=== PATIENT | male | born 1980 | race Caucasian/White ===

== ENCOUNTER 2017-01-26 05:39 | Day surgery (SDC) | payer OTHER ==
[~2017-01-26] VITALS: Ht 180.3 cm; Wt 104.3 kg
--- NOTE | ~2017-01-26 | O ---
[facility] [place] [address] OPERATIVE REPORT Name: TANNER NICOLE Room #: DEP [facility]..#: [id number] Admission: 01/26/17 Attend Phys: Narinder Ron MD Discharge: 01/26/17 Date of : 84 Report #: [id number] THIS REPORT FOR: //name// CC: Narinder Tyson MD DATE OF SERVICE: 01/26/2017 PREOPERATIVE DIAGNOSIS: Right inguinal hernia. POSTOPERATIVE DIAGNOSIS: Right indirect inguinal hernia. SURGEON: Narinder Ron M.D. PROCEDURES PERFORMED: Laparoscopic properitoneal repair of right indirect inguinal hernia. ANESTHESIA: General. COMPLICATIONS: None. ESTIMATED BLOOD LOSS: 5 mL. DESCRIPTION OF PROCEDURE: With the patient under general anesthesia, the abdomen was prepped and draped in sterile fashion. Prior to this, IV antibiotic was administered and Ervin catheter was placed. Timeout was performed. A 0.25% Marcaine was used to anesthetize the skin and subcutaneous tissue. Transverse incision was made adjacent to the umbilicus on the right side. Transverse incision was made about 2 cm. The fascia was identified. The anterior rectus sheath was incised transversely. The muscle was spread. Space between the muscle and the posterior sheath was then gradually developed using finger dissection. A balloon trocar was then placed through the space. Balloon was inflated. CO2 was placed through the balloon trocar. Just inferior to this about an inch and a half, a 5 mm trocar was placed into the properitoneal space under visualization. Then, using cautery and blunt dissection, the properitoneal space was opened up. The pubic bone was isolated. During the dissection, the right inferior epigastric artery and vein were identified. The internal ring was visualized. The lateral wall was then opened up. A second 5 mm trocar was placed here. An indirect hernia sac was found. No direct defect identified. The lateral aspect of the hernia sac was fairly thin. The hernia sac that was over the cord structure was identified and then freed from the cord and then reduced out of the internal ring. It is a fairly large indirect hernia sac. At the base of the hernia sac, there is an opening that was made in the peritoneum because the peritoneum was very thin in this area. There is a defect in the wall where the hernia sac went into. This area was covered by the mesh [address] [id number] OPERATIVE REPORT Name: COREYTANNER SAVANNAH Room #: DEP [facility]..#: [id number] Admission: 01/26/17 Attend Phys: Narinder Ron MD Discharge: 01/26/17 Date of : 84 Report #: [id number] repair. A large 3DMax lightweight mesh was used. This was placed through the 11 mm trocars. This was then opened in the properitoneal space and then positioned . The mesh was placed lateral to the internal ring. Mesh was tacked to the abdominal wall lateral superiorly with SorbaFix. Mesh was tacked to the Shun's ligament inferomedially. Mesh was tacked to rectus muscle superomedially. The mesh was seated well. CO2 was then evacuated out of properitoneal space and trocars were removed. At the fascial level at the umbilical incision, the posterior sheath was then grasped and the peritoneum was opened. This allowed the CO2 that is into the peritoneal cavity to be released. After all the air was evacuated, the posterior sheath was closed with 0 Vicryl suture. The anterior rectus sheath was also closed with 0 Vicryl [id number] x 2. Skin was irrigated, closed with 5-0 PDS subcuticularly. Steri-Strip, Band-Aids were used for dressing. There was air down into the scrotum from the properitoneal space tracking along the cord. This air was evacuated by cleaning the scrotum with alcohol wipe and then placing a 20-gauge needle into the air containing subcutaneous tissue and the scrotal. Air was evacuated well from this. Ervin catheter was removed. The patient was then awakened and taken to recovery room. By: [id number] Narinder Ron MD /bereket
[2017-01-26 11:45] VITALS: BP 128/79
[2017-01-26] MEDS ORDERED: NORCO 5-325 TA1 EACH PO (14:53)
[2017-01-26 15:10] VITALS: BP 128/79
== END 2017-01-26 15:40 | disposition home or self-care (01) ==
LOC: OR 05:39 → TBA 05:39 → OR 10:19
DX: K40.90 Unilateral inguinal hernia, without obstruction or gangrene, not specified as recurrent (principal); F17.210 Nicotine dependence, cigarettes, uncomplicated; Z98.890 Other specified postprocedural states
CPT/HCPCS: 50010; 50101; 50411; 50507; 50555; 50848; 52265; 53065; 53307; 56525; 56526; 62110; 62900; 70005